=== PATIENT | male | born 1985 | race Two or more races ===

== ENCOUNTER 2022-08-06 16:31 | Emergency (ER) | payer SELFPAY ==
[~2022-08-06] VITALS: Ht 182.9 cm; Wt 90.9 kg
[2022-08-06] MEDS ORDERED: TRANEXAMIC ACID 10 ML ONE (16:39)
[2022-08-06] MEDS ORDERED: ceFAZolin 1GM/50ML 100 ML IV ONE (16:41)
[2022-08-06] MEDS ORDERED: HYDROmorphone HCL 2 MG/ML VL/or syr ONE (16:41)
[2022-08-06] MEDS ORDERED: VANCOMYCIN 1GM/250ML 250 ML IV ONE ×2 (16:43→17:00)
[2022-08-06] MEDS ORDERED: cefTRIAXone 1GM/50ML D5W 50 ML IV ONE ×3 (16:43→17:00)
[2022-08-06] MEDS ORDERED: ONDANSETRON HCL 4 MG/2 ML VIAL ONE (16:45)
[2022-08-06] MEDS ORDERED: TETANUS-DIPTH-ACEL PERTUSSIS 0.5ML SYR Tdap IM ONE ×2 (16:56→17:00)
[2022-08-06] MEDS ORDERED: HYDROmorphone HCL 2 MG/ML VL/or syr IV ONE (17:00)
[2022-08-06] MEDS ORDERED: ceFAZolin 1GM/50ML 50 ML IV ONE (17:00)
[2022-08-06] MEDS ORDERED: TRANEXAMIC ACID 1,000 MG in SODIUM CHL 0.9% 100 ML IV ONE (17:00)
[2022-08-06] MEDS ORDERED: ONDANSETRON HCL 4 MG/2 ML VIAL IV ONE (17:00)
[2022-08-06 18:05] LABS: Basophils # (auto) 0 10 ^3/uL (0-0.2); Basophils % (auto) 0.4 % (0.0-2.0); Eosinophils # (auto) 0.2 10 ^3/uL (0-0.8); Hemoglobin 12.9 g/dL (13.5-17.5); Monocytes # (auto) 0.5 10 ^3/uL (0-1.3)
[2022-08-06 18:06] LABS: Lymphocytes % (auto) 40.5 % (10.0-50.0); Mean Corpuscular Hemoglobin 26.4 pg (28.0-32.0); Mean Corpuscular Hgb Conc. 32.2 g/dL (32.0-36.0); Monocytes % (auto) 4.9 % (0.0-12.0); Neutrophils # (auto) 5.2 10 ^3/uL (1.6-8.6); Neutrophils % (auto) 52.2 % (37.0-80.0); Nucleated Red Blood Cells % 0.2 %; Red Blood Cells 4.88 10^6/uL (4.5-5.90); Red Cell Distribution Width 14.5 % (11.8-14.3); White Blood Cell 9.9 10^3/uL (4.4-10.8)
[2022-08-06 18:14] VITALS: BP 133/79
[2022-08-06 18:18] LABS: INR 0.97 (0.9-1.15); Partial Thromboplastin Time 20.5 sec (24.6-33.4)
[2022-08-06 18:20] LABS: Albumin 3.7 g/dL (3.4-5.0); Calcium 7.9 mg/dL (8.5-10.1); Potassium 4.3 mmol/L (3.5-5.1)
[2022-08-06 18:22] LABS: BUN/Creatinine Ratio 13.5
[2022-08-06 18:37] LABS: Bilirubin, Total 0.4 mg/dL (0.2-1.0); Total Protein 7.1 g/dL (6.4-8.2)
== END 2022-08-06 18:01 | disposition short-term general hospital (02) ==
LOC: EDSEX 16:31 → ER 16:31
DX: S99.912A Unspecified injury of left ankle, initial encounter (principal); R57.1 Hypovolemic shock; V28.49XA Other motorcycle driver injured in noncollision transport accident in traffic accident, initial encounter; Y93.89 Activity, other specified; Y92.89 Other specified places as the place of occurrence of the external cause; Y99.8 Other external cause status
CPT/HCPCS: 36415; 36430; 71045; 72170; 73590; 73610; 73620; 73630; 80053; 80329; 85025; 85610; 85730; 86850; 86900; 86901; 86920; 90471; 90715; 96365; 96366; 96368; 96375; 99285; J0690; J0696; J1170; J2405; J3370; P9016